=== PATIENT | male | born 1950 | race Caucasian/White ===

== ENCOUNTER → 2024-01-07 | Outpatient (CLI) | payer SELFPAY ==
[~2024-01-07] MED LIST: NORCO 325 MG-51 TAB PO
[2024-01-07 11:14] LABS: HEMATOCRIT 48.4 % (42.0-52.0); MEAN CELL VOLUME 92 fl (80.0-100.0); MEAN CORPUSCULAR HEMOGLOBIN 30 pg (27-31); MEAN CORPUSCULAR HGB CONC 33 g/dl (33.0-37.0); MEAN PLATELET VOLUME 11.1 fl (7.4-10.4); PLATELET COUNT 281 K/mm3 (130-400); RED BLOOD COUNT 5.28 M/mm3 (4.20-5.60); REDCELL DISTRIBUTION WIDTH-CV 13.2 % (11.5-14.5)
[2024-01-07 11:26] LABS: BILIRUBIN,TOTAL 0.7 mg/dL (0.2-1.2); CALCIUM 9.9 mg/dL (8.4-10.2); CREATININE, serum 0.79 mg/dL (0.72-1.25); TOTAL PROTEIN 7.2 gm/dL (6.2-8.1)
[2024-01-07 11:59] LABS: BAND 1 % (0-10); LYMPHOCYTE 28 % (20.0-51.0); NEUTROPHILS 68 % (42.0-75.2); PLATELET ESTIMATE NORMAL (NORMAL)
== END ==
LOC: COL.LAB 10:32
PROVIDERS: Internal Medicine
DX: C34.32 Malignant neoplasm of lower lobe, left bronchus or lung (principal)

== ENCOUNTER 2024-08-07 05:56 | Day surgery (SDC) | payer SELFPAY ==
[~2024-08-07] VITALS: Ht 182.9 cm; Wt 75.8 kg
[~2024-08-07 05:56] MED LIST changes: +CARAFATE 1GM1 G PO; +KEPPRA1000 MG PO; +Ondansetron 4 MG/2 ML VIAL IV PRN; +PROTONIX 40MG T40 MG PO
[2024-08-07] MEDS ORDERED: LR 1,000 ML IV SCH (06:00)
[2024-08-07 06:13] VITALS: BP 125/85; PULSE 105; TEMP 98.1
--- NOTE | 2024-08-07 06:39 | NUR ---
0601 - PATIENT ARRIVES AMBULATORY AT THIS TIME. PATIENT IS ALERT AND ORIENTED X4, DENIES ANY PAIN AT THIS TIME. HE STATED THAT HE IS CURRENTLY ALONE BUT WOULD CALL HIS DAUGHTER FOLLOWING THE PROCEDURE FOR A RIDE HOME. GIVES AN ACCURATE HEALTH HISTORY AT BEDSIDE. CONSENT FOR PROCEDURE SIGNED AT THIS TIME AND HE VERBALIZED UNDERSTANDING OF EDUCATION; WILL CONTINUE TO [facility]. 0635 - PORT-A-CATH ON RIGHT UPPER CHEST ACCESSED WITH 1 INCH HAWK NEEDLE USING STERILE TECHNIQUE. PATIENT TOLERATED PROCEDURE WELL, DENIES ANY PAIN OR DISCOMFORT, IMMEDIATE BLOOD RETURN NOTED AND PORT FLUSHES EASILY WITH NO RESISTANCE. CONNECTED TO IV FLUIDS AT THIS TIME PER EMAR. WILL CONTINUE TO MONITOR.
[2024-08-07 08:10] VITALS: BP 115/65; PULSE 85
[2024-08-07 08:15] VITALS: BP 125/87; PULSE 79
[2024-08-07 08:30] VITALS: BP 115/66; PULSE 76; TEMP 98.1
--- NOTE | 2024-08-07 08:50 | NUR ---
0810 - PATIENT RETURNS FROM PROCEDURE AT THIS TIME, DENIES ANY PAIN OR DISCOMFORT. PATIENT IS TRANFERRED FROM CART TO CHAIR AT THIS TIME WITH TWO PERSON ASSIST. VSS AND BEDSIDE REPORT IS RECEIVED. 0815 - PORT-A-CATH REMOVED FROM RIGHT UPPER CHEST, BANDAGE APPLIED OVER SITE AT THIS TIME, NO S/S OF BLEEDING AT THIS TIME. PATIENT TOLERATED WELL WITH NO PAIN. 0825 - PATIENT SIGNED DISCHARGE PAPERWORK AT THIS TIME, VERBALIZES UNDERSTANDING OF EDUCATION AT THIS TIME. 0835 - PATIENT ESCORTED TO HOME BOUND VEHICLE AT THIS TIME. PATIENT IS AMBULATORY TO VEHICLE. FAMILY IS DRIVING.
== END 2024-08-07 08:35 | disposition home or self-care (01) ==
LOC: SDCO 05:56
DX: D13.0 Benign neoplasm of esophagus (principal); C16.0 Malignant neoplasm of cardia; K29.50 Unspecified chronic gastritis without bleeding; K20.90 Esophagitis, unspecified without bleeding; F17.210 Nicotine dependence, cigarettes, uncomplicated; Z85.118 Personal history of other malignant neoplasm of bronchus and lung; Z92.21 Personal history of antineoplastic chemotherapy
CPT/HCPCS: J2704